=== PATIENT | female | born 1945 | race Caucasian/White ===

== ENCOUNTER 2018-09-20 13:01 | Inpatient (IN) ==
[2018-09-20] MEDS ORDERED: SODIUM CHLORIDE 0.9% 500 ML IV STA ×3 (14:56→16:01)
[2018-09-20] MEDS ORDERED: ALUM/MAG/SIMETH/LIDO VISC 1:1 30 ML BOTTLE PO STA (15:16)
[2018-09-20 15:19] LABS: Basophils % 0.5 % (0.0-0.8); Eosinophils # 0.1 10*3/uL (0.0-0.87); Eosinophils % 0.6 % (0.00-10.9); Hematocrit 37.5 VOL% (35.7-47.0); Immature Granulocytes % 0.5 %; Immature Granulocytes Absolute 0.04 #; Lymphocytes # 1.4 10*3/uL (1.4-4.0); Lymphocytes % 16.2 % (21.3-54.2); Mean Corpuscular Volume 97.9 FL (87-102); Mean Platelet Volume 10.5 FL (9.6-12.0); Monocytes % 9.5 % (1.7-12.7); Neutrophils % 72.7 % (38.7-73.9); Platelet Count 175 T/CUMM (130-400); Red Blood Count 3.83 MC/CUMM (3.8-5.5); Red Cell Distribution Width 13.2 % (9.3-17.3); White Blood Count 8.3 T/CUMM (4-12)
[2018-09-20 15:27] LABS: Apearance,Urine CLEAR (Clear); Bacteria,Urine Occasional /HPF (Few); Bilirubin,Urine Negative (Negative); Blood, Urine Small mg/dL (Negative); Glucose,Urine (UA) Negative (Negative); Ketones,Urine Negative (Negative); Nitrite,Urine Negative (Negative); Protein,Urine Negative; RBC,Urine 2 /HPF (0-4); Squamous Epithelial Cell,Urine Occasional /HPF (0-10); Urine Color Yellow (Yellow); Urine Specific Gravity 1.004 (1.001-1.035); Urine Urobilinogen < 2.0 EU/DL (0.2-1.0); WBC,Urine 1 /HPF (0-6)
[2018-09-20 15:43] LABS: Albumin 3.9 G/DL (3.4-5.0); Osmolality,Calculated 275.5 MOS/KG (273-304); Total Protein 7.6 G/DL (6.4-8.3)
[2018-09-20] MEDS ORDERED: HYDROmorphone 2 MG/1 ML VIAL IV STA ×2 (15:51→16:30)
[2018-09-20] MEDS ORDERED: SODIUM CHLORIDE 0.9% 1,000 ML IV STA (15:56)
[2018-09-20] MEDS ORDERED: ONDANSETRON 4 MG/2 ML VIAL IV PRN (16:56)
[2018-09-20] MEDS ORDERED: HYDROmorphone 2 MG/1 ML VIAL IV PRN (16:56)
[2018-09-20] MEDS ORDERED: diphenhydrAMINE 50 MG/1 ML VIAL IV STA (19:42)
[2018-09-20] MEDS: SODIUM CHLORIDE 0.9% 1,000 ML IV SCH (21:32)
[2018-09-20] MEDS: DOCUSATE SODIUM 100 MG CAPSULE PO SCH (21:38)
[2018-09-21] MEDS: MEPERIDINE 25 MG/1 ML VIAL IV PRN ×3 (00:46→13:28)
[2018-09-21 05:00] LABS: Basophils % 0.2 % (0.0-0.8); Eosinophils # 0.1 10*3/uL (0.0-0.87); Eosinophils % 1.4 % (0.00-10.9); Hematocrit 32.5 VOL% (35.7-47.0); Hemoglobin 10.5 GM/DL (12.0-16.0); Immature Granulocytes % 0.4 %; Immature Granulocytes Absolute 0.02 #; Lymphocytes # 1.5 10*3/uL (1.4-4.0); Lymphocytes % 29.7 % (21.3-54.2); Mean Corpuscular HGB Conc 32.3 GM/DL (32-36); Mean Corpuscular Volume 97.9 FL (87-102); Monocytes % 10.7 % (1.7-12.7); Neutrophils % 57.6 % (38.7-73.9); Platelet Count 169 T/CUMM (130-400); Red Blood Count 3.32 MC/CUMM (3.8-5.5); Red Cell Distribution Width 13.5 % (9.3-17.3); White Blood Count 5.2 T/CUMM (4-12)
[2018-09-21 05:32] LABS: Albumin 3.2 G/DL (3.4-5.0); Calcium 8.4 MG/DL (8.5-10.1); Total Protein 6.2 G/DL (6.4-8.3)
[2018-09-21] MEDS: SODIUM CHLORIDE 0.9% 1,000 ML IV SCH (07:32)
[2018-09-21] MEDS: PANTOPRAZOLE 40 MG TABLET PO SCH (09:06)
[2018-09-21] MEDS: DOCUSATE SODIUM 100 MG CAPSULE PO SCH ×2 (09:07→20:22)
[2018-09-21] MEDS ORDERED: CLORAZEPATE 7.5 MG TABLET PO PRN (13:22)
[2018-09-21] MEDS: SODIUM CHLOR 0.9% KCL 20 MEQ 20 MEQ/1,000 ML BAG IV SCH (14:18)
[2018-09-21] MEDS: VALSARTAN 80 MG TABLET PO SCH (14:19)
[2018-09-21] MEDS: CARVEDILOL 25 MG TABLET PO SCH (20:22)
[2018-09-21] MEDS: APIXABAN 5 MG TABLET PO SCH (20:22)
[2018-09-21] MEDS: PHENobarbital 30 MG TABLET PO SCH (20:22)
[2018-09-21] MEDS: POTASSIUM CHLORIDE 20 MEQ TABLET PO SCH (20:22)
[2018-09-21] MEDS: PHENYTOIN ER 100 MG CAPSULE PO SCH (20:24)
[2018-09-21] MEDS: ACETAMINOPHEN 325 MG TABLET PO PRN (21:07)
[2018-09-22 04:29] LABS: Basophils % 0.3 % (0.0-0.8); Eosinophils # 0.1 10*3/uL (0.0-0.87); Eosinophils % 1.4 % (0.00-10.9); Hemoglobin 10.1 GM/DL (12.0-16.0); Immature Granulocytes % 0.3 %; Immature Granulocytes Absolute 0.02 #; Lymphocytes # 1.5 10*3/uL (1.4-4.0); Lymphocytes % 26.5 % (21.3-54.2); Mean Corpuscular HGB Conc 31.6 GM/DL (32-36); Mean Corpuscular Volume 99.1 FL (87-102); Mean Platelet Volume 9.9 FL (9.6-12.0); Neutrophils % 62.5 % (38.7-73.9); Platelet Count 181 T/CUMM (130-400); Red Blood Count 3.23 MC/CUMM (3.8-5.5); Red Cell Distribution Width 13.1 % (9.3-17.3); White Blood Count 5.8 T/CUMM (4-12)
[2018-09-22] MEDS: MEPERIDINE 25 MG/1 ML VIAL IV PRN ×2 (04:40→14:35)
[2018-09-22 05:05] LABS: Phenytoin (Dilantin) 8.8 UG/ML (10-20)
[2018-09-22 05:06] LABS: Albumin 2.9 G/DL (3.4-5.0); Bilirubin,Total 0.6 MG/DL (0.2-1.0); Calcium 8.2 MG/DL (8.5-10.1); Osmolality,Calculated 275.4 MOS/KG (273-304); Total Protein 5.9 G/DL (6.4-8.3)
[2018-09-22] MEDS: SODIUM CHLOR 0.9% KCL 20 MEQ 20 MEQ/1,000 ML BAG IV SCH ×3 (05:06→14:37)
[2018-09-22] MEDS: LEVOTHYROXINE 75 MCG TABLET PO SCH (07:02)
[2018-09-22] MEDS: APIXABAN 5 MG TABLET PO SCH ×2 (09:50→20:54)
[2018-09-22] MEDS: DIGOXIN 0.25 MG TABLET PO SCH (09:50)
[2018-09-22] MEDS: MULTIVITAMIN (CENTRUM) TABLET PO SCH (09:50)
[2018-09-22] MEDS: hydroCHLOROthiazide 12.5 MG CAPSULE PO SCH (09:51)
[2018-09-22] MEDS: PHENYTOIN ER 100 MG CAPSULE PO SCH ×2 (09:51→20:55)
[2018-09-22] MEDS: VALSARTAN 80 MG TABLET PO SCH (09:51)
[2018-09-22] MEDS: POTASSIUM CHLORIDE 20 MEQ TABLET PO SCH ×2 (09:51→20:55)
[2018-09-22] MEDS: DILTIAZEM CD 240 MG CAPSULE PO SCH (09:52)
[2018-09-22] MEDS: BENZONATATE 100 MG CAPSULE PO SCH ×3 (09:52→20:54)
[2018-09-22] MEDS: PANTOPRAZOLE 40 MG TABLET PO SCH (09:52)
[2018-09-22] MEDS: CARVEDILOL 25 MG TABLET PO SCH ×2 (09:52→20:54)
[2018-09-22] MEDS: FUROSEMIDE 40 MG TABLET PO SCH (09:52)
[2018-09-22] MEDS: DOCUSATE SODIUM 100 MG CAPSULE PO SCH ×2 (09:52→20:55)
[2018-09-22] MEDS: PHENobarbital 30 MG TABLET PO SCH ×2 (10:11→20:54)
[2018-09-22] MEDS: CEFDINIR 300 MG CAPSULE PO SCH ×2 (10:11→20:55)
[2018-09-22] MEDS: CYCLOBENZAPRINE 10 MG TABLET PO PRN (14:35)
[2018-09-22] MEDS: ACETAMINOPHEN 325 MG TABLET PO PRN (17:03)
[2018-09-22] MEDS ORDERED: ALBUTEROL/IPRATROPIUM 3 ML NEB RESP TX PRN (17:38)
[2018-09-22] MEDS ORDERED: DEXTROMETHORPHAN ER 6 MG/ML 90 ML/BOTTLE PO PRN (17:38)
[2018-09-23] MEDS: ACETAMINOPHEN 325 MG TABLET PO PRN (02:47)
[2018-09-23 05:27] LABS: Basophils % 0.4 % (0.0-0.8); Eosinophils # 0.1 10*3/uL (0.0-0.87); Eosinophils % 0.9 % (0.00-10.9); Hematocrit 31.2 VOL% (35.7-47.0); Hemoglobin 10.2 GM/DL (12.0-16.0); Immature Granulocytes % 0.4 %; Immature Granulocytes Absolute 0.03 #; Lymphocytes # 1.6 10*3/uL (1.4-4.0); Lymphocytes % 24.2 % (21.3-54.2); Mean Corpuscular HGB Conc 32.7 GM/DL (32-36); Mean Corpuscular Volume 96.9 FL (87-102); Monocytes % 10.6 % (1.7-12.7); Neutrophils % 63.5 % (38.7-73.9); Platelet Count 187 T/CUMM (130-400); Red Blood Count 3.22 MC/CUMM (3.8-5.5); Red Cell Distribution Width 12.9 % (9.3-17.3); White Blood Count 6.7 T/CUMM (4-12)
[2018-09-23 06:03] LABS: Albumin 3.2 G/DL (3.4-5.0); Calcium 8.6 MG/DL (8.5-10.1); Osmolality,Calculated 279.1 MOS/KG (273-304); Total Protein 6.2 G/DL (6.4-8.3)
[2018-09-23] MEDS: LEVOTHYROXINE 75 MCG TABLET PO SCH (06:16)
[2018-09-23] MEDS: DILTIAZEM CD 240 MG CAPSULE PO SCH (08:25)
[2018-09-23] MEDS: PHENobarbital 30 MG TABLET PO SCH ×2 (08:25→20:38)
[2018-09-23] MEDS: hydroCHLOROthiazide 12.5 MG CAPSULE PO SCH (08:26)
[2018-09-23] MEDS: DIGOXIN 0.25 MG TABLET PO SCH (08:26)
[2018-09-23] MEDS: PHENYTOIN ER 100 MG CAPSULE PO SCH ×2 (08:26→20:38)
[2018-09-23] MEDS: PANTOPRAZOLE 40 MG TABLET PO SCH (08:27)
[2018-09-23] MEDS: FUROSEMIDE 40 MG TABLET PO SCH (08:27)
[2018-09-23] MEDS: BENZONATATE 100 MG CAPSULE PO SCH ×3 (08:27→20:38)
[2018-09-23] MEDS: DOCUSATE SODIUM 100 MG CAPSULE PO SCH ×2 (08:27→20:38)
[2018-09-23] MEDS: VALSARTAN 80 MG TABLET PO SCH (08:27)
[2018-09-23] MEDS: APIXABAN 5 MG TABLET PO SCH ×2 (08:27→20:39)
[2018-09-23] MEDS: CEFDINIR 300 MG CAPSULE PO SCH ×2 (08:27→20:38)
[2018-09-23] MEDS: MULTIVITAMIN (CENTRUM) TABLET PO SCH (08:28)
[2018-09-23] MEDS: CARVEDILOL 25 MG TABLET PO SCH ×2 (08:28→20:39)
[2018-09-23] MEDS: POTASSIUM CHLORIDE 20 MEQ TABLET PO SCH ×2 (08:28→20:39)
[2018-09-23] MEDS: SODIUM CHLOR 0.9% KCL 20 MEQ 20 MEQ/1,000 ML BAG IV SCH (12:08)
[2018-09-23] MEDS: CYCLOBENZAPRINE 10 MG TABLET PO PRN (20:39)
[2018-09-24 05:51] LABS: Basophils % 0.4 % (0.0-0.8); Eosinophils # 0.1 10*3/uL (0.0-0.87); Eosinophils % 1.6 % (0.00-10.9); Hematocrit 30.9 VOL% (35.7-47.0); Hemoglobin 10.3 GM/DL (12.0-16.0); Immature Granulocytes % 0.3 %; Immature Granulocytes Absolute 0.02 #; Lymphocytes # 1.7 10*3/uL (1.4-4.0); Lymphocytes % 22.4 % (21.3-54.2); Mean Corpuscular HGB Conc 33.3 GM/DL (32-36); Mean Corpuscular Volume 96.3 FL (87-102); Mean Platelet Volume 9.9 FL (9.6-12.0); Monocytes % 10.1 % (1.7-12.7); Neutrophils % 65.2 % (38.7-73.9); Platelet Count 205 T/CUMM (130-400); Red Blood Count 3.21 MC/CUMM (3.8-5.5); White Blood Count 7.5 T/CUMM (4-12)
[2018-09-24 06:17] LABS: Albumin 3.1 G/DL (3.4-5.0); Bilirubin,Total 1.4 MG/DL (0.2-1.0); Calcium 8.7 MG/DL (8.5-10.1); Osmolality,Calculated 275.4 MOS/KG (273-304); Total Protein 6.5 G/DL (6.4-8.3)
[2018-09-24] MEDS: LEVOTHYROXINE 75 MCG TABLET PO SCH (06:28)
[2018-09-24] MEDS: ACETAMINOPHEN 325 MG TABLET PO PRN (07:23)
[2018-09-24] MEDS: SODIUM CHLOR 0.9% KCL 20 MEQ 20 MEQ/1,000 ML BAG IV SCH ×2 (08:31→17:12)
[2018-09-24] MEDS: DIGOXIN 0.25 MG TABLET PO SCH (08:45)
[2018-09-24] MEDS: MULTIVITAMIN (CENTRUM) TABLET PO SCH (08:45)
[2018-09-24] MEDS: PHENobarbital 30 MG TABLET PO SCH (08:45)
[2018-09-24] MEDS: PANTOPRAZOLE 40 MG TABLET PO SCH (08:45)
[2018-09-24] MEDS: hydroCHLOROthiazide 12.5 MG CAPSULE PO SCH (08:45)
[2018-09-24] MEDS: CEFDINIR 300 MG CAPSULE PO SCH (08:45)
[2018-09-24] MEDS: FUROSEMIDE 40 MG TABLET PO SCH (08:45)
[2018-09-24] MEDS: DOCUSATE SODIUM 100 MG CAPSULE PO SCH (08:45)
[2018-09-24] MEDS: APIXABAN 5 MG TABLET PO SCH (08:45)
[2018-09-24] MEDS: DILTIAZEM CD 240 MG CAPSULE PO SCH (08:46)
[2018-09-24] MEDS: VALSARTAN 80 MG TABLET PO SCH (08:46)
[2018-09-24] MEDS: PHENYTOIN ER 100 MG CAPSULE PO SCH (08:46)
[2018-09-24] MEDS: POTASSIUM CHLORIDE 20 MEQ TABLET PO SCH (08:47)
[2018-09-24] MEDS: CARVEDILOL 25 MG TABLET PO SCH (08:47)
[2018-09-24] MEDS: BENZONATATE 100 MG CAPSULE PO SCH ×2 (08:47→14:44)
[2018-09-24 17:16] VITALS: BP 105/73
== END 2018-09-24 16:43 | disposition home or self-care (01) | DRG 440 ==
LOC: N.ED 13:01 → N.EDINP 16:56 → N.3E 23:20
PROVIDERS: ADMIT Family Medicine; ATTEND Family Medicine

== ENCOUNTER 2019-06-09 05:23 | Inpatient (IN) ==
[2019-06-09] MEDS ORDERED: VANCOMYCIN INJ 1,000 MG in SODIUM CHLORIDE 0.9% 250 ML IV ONE (06:00)
[2019-06-09] MEDS ORDERED: CLINDAMYCIN INJ 900 MG in PREMIX 1 EACH IV ONE (06:00)
[2019-06-09] MEDS ORDERED: VANCOMYCIN 1,000 MG VIAL ONE (06:04)
[2019-06-09] MEDS ORDERED: ceFAZolin 1,000 MG VIAL ONE (06:04)
[2019-06-09] MEDS ORDERED: PHENYLEPHRINE DRIP 20 MG/250 ML PREMIX IV ONE (06:16)
[2019-06-09] MEDS ORDERED: TRANEXAMIC ACID 1,000 MG/10 ML VIAL ONE (06:17)
[2019-06-09] MEDS ORDERED: DEXAMETHASONE 4 MG/1 ML VIAL ONE (06:18)
[2019-06-09] MEDS ORDERED: BUPIVACAINE MPF 0.5% /EPI 30 ML VIAL ONE (06:18)
[2019-06-09] MEDS ORDERED: ACETAMINOPHEN 500 MG TABLET ONE (06:38)
[2019-06-09] MEDS ORDERED: GABAPENTIN 400 MG CAPSULE ONE (06:38)
[2019-06-09] MEDS ORDERED: FAMOTIDINE 20 MG TABLET ONE (06:38)
[2019-06-09] MEDS ORDERED: FAMOTIDINE 20 MG TABLET PO ONE (06:40)
[2019-06-09] MEDS ORDERED: ACETAMINOPHEN 500 MG TABLET PO ONE (06:40)
[2019-06-09] MEDS ORDERED: GABAPENTIN 400 MG CAPSULE PO ONE (06:40)
[2019-06-09] MEDS ORDERED: LACTATED RINGERS 1,000 ML IV SCH (07:00)
[2019-06-09] MEDS ORDERED: BACITRACIN OINT 0.9 GM PACK TOP ONE (08:02)
[2019-06-09] MEDS ORDERED: MORPHINE 4 MG/1 ML VIAL IV PRN ×2 (08:25)
[2019-06-09] MEDS ORDERED: ONDANSETRON 4 MG/2 ML VIAL IV PRN (08:25)
[2019-06-09] MEDS ORDERED: MIDAZOLAM 2 MG/2 ML VIAL ONE (08:41)
[2019-06-09] MEDS ORDERED: fentaNYL 100 MCG/2 ML VIAL ONE (08:41)
[2019-06-09] MEDS ORDERED: BUPIVACAINE SPINAL 0.75% 2 ML AMP SPINAL ONE (08:41)
[2019-06-09] MEDS ORDERED: PHENYLEPHRINE 1 MG/10 ML SYRINGE IV ONE (08:42)
[2019-06-09] MEDS: LACTATED RINGERS 1,000 ML IV SCH ×2 (09:45→19:30)
[2019-06-09] MEDS: PANTOPRAZOLE 40 MG TABLET PO SCH (11:52)
[2019-06-09] MEDS: DOCUSATE SODIUM 100 MG CAPSULE PO SCH ×2 (11:52→21:34)
[2019-06-09] MEDS: KETOROLAC 15 MG/1 ML VIAL IV SCH ×3 (11:52→21:25)
[2019-06-09] MEDS: POTASSIUM CHLORIDE 20 MEQ TABLET PO SCH ×2 (11:52→21:34)
[2019-06-09] MEDS: ceFAZolin 2,000 MG in PREMIX 1 EACH IV SCH ×2 (14:50→21:37)
[2019-06-09] MEDS: PHENYTOIN ER 100 MG CAPSULE PO SCH (18:34)
[2019-06-09] MEDS: ALUMINUM/MAGNES/SIMETH MAX STR 30 ML UDCUP PO PRN (18:34)
[2019-06-09] MEDS: VALSARTAN 80 MG TABLET PO SCH (21:34)
[2019-06-09] MEDS: carvediloL 25 MG TABLET PO SCH (21:34)
[2019-06-09] MEDS: PHENobarbital 30 MG TABLET PO SCH (21:34)
[2019-06-09] MEDS: APIXABAN 2.5 MG TABLET PO SCH (21:34)
[2019-06-10] MEDS: LACTATED RINGERS 1,000 ML IV SCH ×2 (00:09→04:34)
[2019-06-10] MEDS: ALUMINUM/MAGNES/SIMETH MAX STR 30 ML UDCUP PO PRN (01:19)
[2019-06-10] MEDS: KETOROLAC 15 MG/1 ML VIAL IV SCH (03:58)
[2019-06-10 06:24] LABS: Basophils % 0.2 % (0.0-0.8); Eosinophils # 0.1 10*3/uL (0.0-0.87); Eosinophils % 0.9 % (0.00-10.9); Hematocrit 31.7 VOL% (35.7-47.0); Hemoglobin 10.3 GM/DL (12.0-16.0); Immature Granulocytes % 0.6 %; Immature Granulocytes Absolute 0.06 #; Lymphocytes # 1.9 10*3/uL (1.4-4.0); Lymphocytes % 18.3 % (21.3-54.2); Mean Corpuscular HGB Conc 32.5 GM/DL (32-36); Mean Corpuscular Volume 99.4 FL (87-102); Mean Platelet Volume 9.8 FL (9.6-12.0); Platelet Count 210 T/CUMM (130-400); Red Blood Count 3.19 MC/CUMM (3.8-5.5); Red Cell Distribution Width 12.8 % (9.3-17.3); White Blood Count 10.5 T/CUMM (4-12)
[2019-06-10] MEDS: LEVOTHYROXINE 88 MCG TABLET PO SCH (06:28)
[2019-06-10 06:41] LABS: Calcium 8.7 MG/DL (8.5-10.1)
[2019-06-10] MEDS ORDERED: OXYBUTYNIN 5 MG TABLET PO PRN (08:32)
[2019-06-10] MEDS: PANTOPRAZOLE 40 MG TABLET PO SCH (09:48)
[2019-06-10] MEDS: PHENYTOIN ER 100 MG CAPSULE PO SCH ×2 (09:48→18:42)
[2019-06-10] MEDS: POTASSIUM CHLORIDE 20 MEQ TABLET PO SCH ×2 (09:49→21:34)
[2019-06-10] MEDS: APIXABAN 2.5 MG TABLET PO SCH ×2 (09:49→21:34)
[2019-06-10] MEDS: DOCUSATE SODIUM 100 MG CAPSULE PO SCH ×2 (09:49→21:34)
[2019-06-10] MEDS: MAGNESIUM HYDROXIDE SUSP 30 ML UDCUP PO PRN (09:49)
[2019-06-10] MEDS: DIGOXIN 0.25 MG TABLET PO SCH (09:49)
[2019-06-10] MEDS: FUROSEMIDE 40 MG TABLET PO SCH (09:50)
[2019-06-10] MEDS: INULIN 2 GM PO SCH (09:50)
[2019-06-10] MEDS: carvediloL 25 MG TABLET PO SCH ×2 (09:50→21:34)
[2019-06-10] MEDS: VALSARTAN 80 MG TABLET PO SCH (09:50)
[2019-06-10] MEDS: hydroCHLOROthiazide 12.5 MG CAPSULE PO SCH (09:50)
[2019-06-10] MEDS: DILTIAZEM CD 240 MG CAPSULE PO SCH (09:50)
[2019-06-10] MEDS: PHENobarbital 30 MG TABLET PO SCH ×2 (11:03→21:41)
[2019-06-10 11:49] LABS: Apearance,Urine CLOUDY (Clear); Bilirubin,Urine Negative (Negative); Blood, Urine Negative (Negative); Glucose,Urine (UA) Negative (Negative); Ketones,Urine Negative (Negative); Mucus,Urine Occasional /LPF (Occasional); Nitrite,Urine Negative (Negative); Protein,Urine Negative; RBC,Urine 4 /HPF (0-4); Squamous Epithelial Cell,Urine Moderate /HPF (0-10); Urine Color Amber (Yellow); Urine Specific Gravity 1.027 (1.001-1.035); Urine Urobilinogen < 2.0 EU/DL (0.2-1.0); WBC,Urine 68 /HPF (0-6)
[2019-06-10] MEDS ORDERED: LACTATED RINGERS 500 ML IV ONE (12:11)
[2019-06-10] MEDS: CELECOXIB 200 MG CAPSULE PO SCH (14:31)
[2019-06-11 06:11] LABS: Basophils # 0.1 10*3/uL (0.0-0.2); Basophils % 0.7 % (0.0-0.8); Eosinophils # 0.4 10*3/uL (0.0-0.87); Eosinophils % 4.9 % (0.00-10.9); Hematocrit 28.3 VOL% (35.7-47.0); Hemoglobin 9.3 GM/DL (12.0-16.0); Immature Granulocytes % 0.3 %; Immature Granulocytes Absolute 0.02 #; Lymphocytes # 1.2 10*3/uL (1.4-4.0); Lymphocytes % 16.4 % (21.3-54.2); Mean Corpuscular HGB Conc 32.9 GM/DL (32-36); Mean Corpuscular Volume 97.6 FL (87-102); Mean Platelet Volume 10.3 FL (9.6-12.0); Monocytes % 14.2 % (1.7-12.7); Neutrophils % 63.5 % (38.7-73.9); Platelet Count 156 T/CUMM (130-400); White Blood Count 7.1 T/CUMM (4-12)
[2019-06-11] MEDS: LEVOTHYROXINE 88 MCG TABLET PO SCH (06:11)
[2019-06-11] MEDS: CELECOXIB 200 MG CAPSULE PO SCH (08:51)
[2019-06-11] MEDS: POTASSIUM CHLORIDE 20 MEQ TABLET PO SCH ×2 (08:52→21:22)
[2019-06-11] MEDS: DOCUSATE SODIUM 100 MG CAPSULE PO SCH ×2 (08:52→21:21)
[2019-06-11] MEDS: PANTOPRAZOLE 40 MG TABLET PO SCH (08:52)
[2019-06-11] MEDS: APIXABAN 2.5 MG TABLET PO SCH ×2 (08:52→21:22)
[2019-06-11] MEDS: DIGOXIN 0.25 MG TABLET PO SCH (08:52)
[2019-06-11] MEDS: PHENYTOIN ER 100 MG CAPSULE PO SCH ×2 (08:53→18:02)
[2019-06-11] MEDS: ALUMINUM/MAGNES/SIMETH MAX STR 30 ML UDCUP PO PRN ×2 (08:56→21:21)
[2019-06-11] MEDS: hydroCHLOROthiazide 12.5 MG CAPSULE PO SCH (09:01)
[2019-06-11] MEDS: carvediloL 25 MG TABLET PO SCH ×2 (09:01→21:22)
[2019-06-11] MEDS: DILTIAZEM CD 240 MG CAPSULE PO SCH (09:01)
[2019-06-11] MEDS: INULIN 2 GM PO SCH (09:01)
[2019-06-11] MEDS: PHENobarbital 30 MG TABLET PO SCH ×2 (09:01→21:22)
[2019-06-11] MEDS: FUROSEMIDE 40 MG TABLET PO SCH (09:01)
[2019-06-11] MEDS: VALSARTAN 80 MG TABLET PO SCH (09:01)
[2019-06-11] MEDS: MAGNESIUM HYDROXIDE SUSP 30 ML UDCUP PO PRN (14:17)
[2019-06-12 05:30] LABS: Basophils % 0.3 % (0.0-0.8); Eosinophils # 0.4 10*3/uL (0.0-0.87); Hematocrit 28.1 VOL% (35.7-47.0); Hemoglobin 9.2 GM/DL (12.0-16.0); Immature Granulocytes % 0.4 %; Immature Granulocytes Absolute 0.04 #; Lymphocytes # 1.5 10*3/uL (1.4-4.0); Lymphocytes % 16.9 % (21.3-54.2); Mean Corpuscular HGB Conc 32.7 GM/DL (32-36); Mean Corpuscular Volume 97.9 FL (87-102); Mean Platelet Volume 10.4 FL (9.6-12.0); Monocytes % 10.7 % (1.7-12.7); Neutrophils % 67.7 % (38.7-73.9); Platelet Count 176 T/CUMM (130-400); Red Blood Count 2.87 MC/CUMM (3.8-5.5); Red Cell Distribution Width 13.2 % (9.3-17.3); White Blood Count 9.1 T/CUMM (4-12)
[2019-06-12] MEDS: LEVOTHYROXINE 88 MCG TABLET PO SCH (06:29)
[2019-06-12] MEDS: hydroCHLOROthiazide 12.5 MG CAPSULE PO SCH (09:27)
[2019-06-12] MEDS: ALUMINUM/MAGNES/SIMETH MAX STR 30 ML UDCUP PO PRN (09:27)
[2019-06-12] MEDS: carvediloL 25 MG TABLET PO SCH (09:28)
[2019-06-12] MEDS: POTASSIUM CHLORIDE 20 MEQ TABLET PO SCH (09:28)
[2019-06-12] MEDS: CELECOXIB 200 MG CAPSULE PO SCH (09:28)
[2019-06-12] MEDS: DIGOXIN 0.25 MG TABLET PO SCH (09:28)
[2019-06-12] MEDS: DILTIAZEM CD 240 MG CAPSULE PO SCH (09:29)
[2019-06-12] MEDS: PANTOPRAZOLE 40 MG TABLET PO SCH (09:29)
[2019-06-12] MEDS: APIXABAN 2.5 MG TABLET PO SCH (09:30)
[2019-06-12] MEDS: VALSARTAN 80 MG TABLET PO SCH (09:30)
[2019-06-12] MEDS: DOCUSATE SODIUM 100 MG CAPSULE PO SCH (09:30)
[2019-06-12] MEDS: FUROSEMIDE 40 MG TABLET PO SCH (09:30)
[2019-06-12] MEDS: INULIN 2 GM PO SCH (09:31)
[2019-06-12] MEDS: PHENYTOIN ER 100 MG CAPSULE PO SCH (09:31)
[2019-06-12] MEDS: PHENobarbital 30 MG TABLET PO SCH (10:28)
[2019-06-12] MEDS ORDERED: CALCIUM CARBONATE CHEW 500 MG TABLET PO PRN (11:31)
[2019-06-12 11:55] VITALS: BP 95/75
== END 2019-06-12 13:18 | disposition swing bed (61) | DRG 470 ==
LOC: N.OR 05:23 → N.SDSINP 05:23 → N.3E 08:25
PROVIDERS: ADMIT Orthopaedic Surgery; ATTEND Orthopaedic Surgery